=== PATIENT | female | born 1945 | race Caucasian/White ===

== ENCOUNTER 2022-12-28 11:33 | Inpatient (IN) | payer OTHER ==
[~2022-12-28] VITALS: Ht 160 cm; Wt 80.4 kg
[2022-12-28 12:09] LABS: Basophils # (auto) 0.1 10 ^3/uL (0-0.2); Basophils % (auto) 0.8 % (0.0-2.0); Eosinophils # (auto) 0.1 10 ^3/uL (0-0.8); Eosinophils % (auto) 1.4 % (0.0-7.0); Hematocrit 44.6 % (36.0-46.0); Hemoglobin 14.8 g/dL (12.2-16.2); Lymphocytes % (auto) 28.1 % (10.0-50.0); Mean Corpuscular Hemoglobin 29.5 pg (28.0-32.0); Mean Corpuscular Hgb Conc. 33.1 g/dL (32.0-36.0); Mean Corpuscular Volume 89.2 fL (80.0-100.0); Monocytes # (auto) 0.5 10 ^3/uL (0-1.3); Monocytes % (auto) 7.3 % (0.0-12.0); Neutrophils # (auto) 4.5 10 ^3/uL (1.6-8.6); Neutrophils % (auto) 62.4 % (37.0-80.0); Nucleated Red Blood Cells % 0.2 %; Red Blood Cells 5.01 10^6/uL (4.0-5.20); Red Cell Distribution Width 14.5 % (11.8-14.3); White Blood Cell 7.2 10^3/uL (4.4-10.8)
[2022-12-28 12:30] LABS: Alanine Aminotransferase 26 U/L (7-40); Albumin 4.6 g/dL (3.2-4.8); Alkaline Phosphatase 71 U/L (46-116); Anion Gap 5.9 (5-15); Aspartate Aminotransferase 18 U/L (13-40); BUN/Creatinine Ratio 19.8 (10.0-20.0); Bilirubin, Total 0.6 mg/dL (0.2-1.0); Blood Urea Nitrogen 19 mg/dL (9-23); Calcium 9.5 mg/dL (8.5-10.1); Carbon Dioxide 29.1 mmol/L (20-30); Chloride 105 mmol/L (98-107); Glucose 99 mg/dL (74-106); Potassium 3.9 mmol/L (3.5-5.1); Sodium 140 mmol/L (136-145)
[2022-12-28 12:31] LABS: Urine Bacteria NONE SEEN /hpf (None Seen); Urine Blood Negative /uL (Negative); Urine Clarity Clear (Clear); Urine Protein, UAD Negative (Negative); Urine Specific Gravity 1.009 (1.001-1.035); Urine Urobilinogen Normal (Negative); Urine WBC <1 /hpf (0 - 5); Urine pH 5.5 (5.0-8.0)
[2022-12-28 12:38] LABS: Urine Color Straw (Yellow)
[2022-12-28] MEDS ORDERED: methylPREDNISolone SOD SUCC 40 MG/ML VL IV ONE (14:00)
[2022-12-28] MEDS ORDERED: levoFLOXacin 500MG 100 ML IV ONE (14:00)
[2022-12-28] MEDS ORDERED: HYDROcodone-ACET 5/325MG TAB PO PRN (16:15)
[2022-12-28] MEDS ORDERED: NITROGLYCERIN 0.4 MG SL TAB SL PRN (16:15)
[2022-12-28] MEDS ORDERED: ACETAMINOPHEN 325 MG TAB PO PRN (16:15)
[2022-12-28] MEDS ORDERED: ONDANSETRON HCL 4 MG/2 ML VIAL IV PRN (16:15)
[2022-12-28] MEDS ORDERED: MORPHINE SULFATE INJ 2 MG/ml SYRG IV PRN ×2 (16:15)
[2022-12-28 17:10] VITALS: O2SAT 97
[2022-12-28] MEDS: cefTRIAXone 1GM/50ML D5W 50 ML IV SCH (17:30)
[2022-12-28 17:55] VITALS: PULSE 77; RESP 18; O2SAT 95
[2022-12-28] MEDS: IPRATROPIUM BROM 0.5 MG/2.5ML INH SOL NEB SCH ×2 (17:55→22:35)
[2022-12-28] MEDS: ALBUTEROL SULF 2.5 MG/0.5ML(0.5%) NEB SOLN NEB SCH ×2 (17:55→22:35)
[2022-12-28 18:05] VITALS: PULSE 74; RESP 18; O2SAT 100
[2022-12-28 19:31] VITALS: BP 106/86; PULSE 74; RESP 18; TEMP 98.1; O2SAT 95
[2022-12-28 20:05] VITALS: PULSE 77; RESP 16; O2SAT 94
[2022-12-28] MEDS ORDERED: IPRATROPIUM BROM 0.5 MG/2.5ML INH SOL NEB PRN (23:00)
[2022-12-28] MEDS ORDERED: ALBUTEROL SULF 2.5 MG/0.5ML(0.5%) NEB SOLN NEB PRN (23:00)
[2022-12-29] VITALS (7 sets, daily range): BP systolic 106–155; BP diastolic 60–70; PULSE 56–74; RESP 16–20; TEMP 97.9–98; O2SAT 93–98
[2022-12-29] MEDS: cefTRIAXone 1GM/50ML D5W 50 ML IV SCH (08:53)
[2022-12-29] MEDS: SOD CHL 0.45% 1,000 ML IV SCH ×2 (08:54→22:50)
[2022-12-29] MEDS ORDERED: REGADENOSON 0.4 MG/5 ML SYRG IV ONE (09:24)
[2022-12-29] MEDS: ENOXAPARIN SOD 40 MG/0.4 ML SYRINGE SC SCH (09:46)
[2022-12-29] MEDS: AZITHROMYCIN 500MG/ 250ML 250 ML IV SCH (09:47)
[2022-12-29] MEDS: REGADENOSON 0.4 MG/5 ML SYRG IV ONE ×2 (11:23→11:58)
[2022-12-29] MEDS ORDERED: AZIT500T66 PO (14:54)
[2022-12-29] MEDS ORDERED: CEPH500C PO (14:54)
[2022-12-29] MEDS ORDERED: ASPI-543 PO (16:29)
[2022-12-29] MEDS ORDERED: CRAN600T PO (16:29)
[2022-12-29] MEDS ORDERED: FLUT250M2 IN (16:31)
[2022-12-29] MEDS ORDERED: OMEG1400 PO (16:31)
[2022-12-29] MEDS ORDERED: LOSA100T33 PO (16:33)
[2022-12-30] VITALS (13 sets, daily range): BP systolic 119–168; BP diastolic 42–67; PULSE 58–82; RESP 12–19; TEMP 97.5–98.7; O2SAT 94–99
[2022-12-30 09:10] LABS: INR 1.02 (0.9-1.15); Partial Thromboplastin Time 27.3 SEC (24.5-34.5); Prothrombin Time 10.7 sec (9.3-11.8)
[2022-12-30] MEDS: cefTRIAXone 1GM/50ML D5W 50 ML IV SCH (09:51)
[2022-12-30] MEDS: ENOXAPARIN SOD 40 MG/0.4 ML SYRINGE SC SCH (09:53)
[2022-12-30] MEDS: AZITHROMYCIN 500MG/ 250ML 250 ML IV SCH (10:59)
[2022-12-30] MEDS: SOD CHL 0.45% 1,000 ML IV SCH (12:33)
[2022-12-30] MEDS ORDERED: LIDOCAINE 2%HCL (LOCAL ANESTH.) INJ 20ML MDV ONE (15:29)
[2022-12-30] MEDS ORDERED: IODIXANOL 320MG/ML 100ML BTL IV ONE (15:29)
[2022-12-30] MEDS ORDERED: fentaNYL CITRATE 100 MCG/2 ML VL ONE (15:30)
[2022-12-30] MEDS ORDERED: HEPARIN SODIUM (PORCINE) 5000 UNITS/ML 1ML VIAL ONE (15:30)
[2022-12-30] MEDS ORDERED: ANGIOMAX 250 MG VIAL IV ONE (15:30)
[2022-12-30] MEDS ORDERED: VERAPAMIL 2.5MG/ML INJ 2ML VIAL IV ONE (15:30)
[2022-12-30] MEDS ORDERED: MIDAZOLAM HCL 2MG/2ML 2ml VIAL (1mg/ml) ONE (15:31)
[2022-12-30] MEDS ORDERED: SODIUM CHL 0.9% 0 ML ONE (15:31)
== END 2022-12-30 21:13 | disposition home or self-care (01) | DRG 178 ==
LOC: ER 11:33 → TELE 16:18 → TELE-WESTW 12-29 15:22
PROVIDERS: ADMIT Internal Medicine; ATTEND Internal Medicine
PROC: 4A023N7 Measurement of Cardiac Sampling and Pressure, Left Heart, Percutaneous Approach (ICD-10-PCS; principal; 2022-12-30)
PROC: B211YZZ Fluoroscopy of Multiple Coronary Arteries using Other Contrast (ICD-10-PCS; 2022-12-30)
PROC: B215YZZ Fluoroscopy of Left Heart using Other Contrast (ICD-10-PCS; 2022-12-30)
DX: J15.6 Pneumonia due to other Gram-negative bacteria (principal); J44.0 Chronic obstructive pulmonary disease with (acute) lower respiratory infection; J96.10 Chronic respiratory failure, unspecified whether with hypoxia or hypercapnia; J15.9 Unspecified bacterial pneumonia; I10 Essential (primary) hypertension; E78.5 Hyperlipidemia, unspecified; Z87.891 Personal history of nicotine dependence; Z88.0 Allergy status to penicillin; Z99.81 Dependence on supplemental oxygen; Z88.1 Allergy status to other antibiotic agents
CPT/HCPCS: 36415; 71045; 78452; 80053; 81001; 83605; 84484; 85025; 85610; 85730; 86850; 86900; 86901; 87040; 93005; 93017; 93306; 93458; 93886; 94640; 96365; 97110; 97116; 97163; 97530; 99152; 99153; 99291; G0378; J0696; J1956; J2250; J2405; Q9967